=== PATIENT | female | born 1965 | race Hispanic/Latino ===

== ENCOUNTER 2016-08-01 10:06 | Outpatient (CLI) | payer OTHER ==
[~2016-08-01] VITALS: Ht 144.8 cm; Wt 50.2 kg
[~2016-08-01 10:06] MED LIST: OMEP40CA36 PO
--- OUTSIDE RECORDS SUMMARY | 2016-08-01 10:10 | XMS REPORT | Continuity of Care Document ---
Author Author [facility] Organization [facility] Address Unknown Phone Unavailable Care Team Providers Care Dental Instrument Maker Name Role Phone VITA SMITH MD PCP Insurance Providers Payer Name Policy Number Subscriber Name Relationship [employer] García Alcaraz [id number] Sister Molly Sanabria Na 18 Self / Same As Patient Advance Directives Directive Response Recorded Date/Time Advance Directives No 05/09/16 12:19pm Health Care Power of Rotary Surface Grinder No 05/09/16 12:19pm Resuscitation Status Full Code 05/09/16 12:19pm Problems No problem information available. Medications Current Home Medications Medication Dose Units Route Directions Days/Qty Instructions Start Date Omeprazole 40 Mg 40 Mg Oral Daily 05/09/16 Social History Social History Problem Response Recorded Date/Time Alcohol Use Occasionally Uses 05/09/2016 12:19pm Recreational Drug Use No 05/09/2016 12:19pm Recent Foreign Travel No 05/09/2016 12:18pm Recent Infectious Disease Exposure No 05/09/2016 12:18pm Sexually Transmitted Disease No 05/09/2016 12:19pm HIV/AIDS No 05/09/2016 12:19pm Smoking Status Never a Smoker 05/09/2016 12:19pm Recent Hopitalizations No 05/09/2016 12:19pm Sexually Transmitted Disease No 05/09/2016 12:19pm Query Response Start Date Stop Date Smoking Status Never a Smoker Hospital Discharge Instructions No hospital discharge instructions. Plan of Care Discharge Date 05/09/16 12:28pm Prescriptions See Medication Section Functional Status No functional status results. Allergies, Adverse Reactions, Alerts No known allergies. Immunizations No immunization records. Vital Signs Acute Vital Signs Vital Response Date/Time Height (Feet) 4 feet 05/09/2016 12:12pm Height (Inches) 11.00 inches 05/09/2016 12:12pm Height (Calculated Centimeters) 149.069683 cm 05/09/2016 12:12pm Weight (Pounds) 115 pounds 05/09/2016 12:12pm Weight (Ounces) 0.0 oz 05/09/2016 12:12pm Weight (Calculated Grams) 54578.12 gm 05/09/2016 12:12pm Weight (Calculated Kilograms) 52.167191 kilograms 05/09/2016 12:12pm Calculated BMI 23.2 05/09/2016 12:12pm Results No known relevant diagnostic tests, laboratory data and/or discharge summary. Procedures No known history of procedures. Encounters Encounter Location Arrival/Admit Date Discharge/Depart Date Attending Provider Departed Clinic [facility] 05/09/16 5:42am 05/09/16 12: 28pm WOLFGANG CARLOS DO
[2016-08-01 10:19] VITALS: BP 123/75
[2016-08-01 10:56] LABS: BASOPHILS # (AUTO) 0.1 10^3/uL (0.0-0.1); BASOPHILS % (AUTO) 1 % (0-10); EOSINOPHILS # (AUTO) 0.2 10^3/uL (0.0-0.3); EOSINOPHILS % (AUTO) 4 % (0-10); LYMPHOCYTES # (AUTO) 2.3 X 10^3 (1.0-4.0); LYMPHOCYTES % (AUTO) 42 % (12-44); MEAN CORPUSCULAR HEMOGLOBIN 32 PG (25-34); MEAN CORPUSCULAR HGB CONC 34 G/DL (32-36); MEAN CORPUSCULAR VOLUME 93 FL (80-99); MEAN PLATELET VOLUME 10.7 FL (7.4-10.4); MONOCYTES # (AUTO) 0.4 X 10^3 (0.0-1.0); MONOCYTES % (AUTO) 7 % (0-12); NEUTROPHILS # (AUTO) 2.5 X 10^3 (1.8-7.8); NEUTROPHILS % (AUTO) 46 % (42-75); PLATELET COUNT 300 10^3/uL (130-400); RED BLOOD COUNT 4.11 10^6/uL (4.35-5.85); RED CELL DISTRIBUTION WIDTH 13.1 % (10.0-14.5); WHITE BLOOD COUNT 5.4 10^3/uL (4.3-11.0)
[2016-08-04] MEDS ORDERED: HYDR-3812 PO (13:34)
[2016-08-04] MEDS ORDERED: DOCU-143 PO (13:34)
== END 2016-08-01 10:35 | disposition home or self-care (01) ==
LOC: PREOP 10:06
PROVIDERS: ATTEND Surgery
DX: Z01.812 Encounter for preprocedural laboratory examination (principal); Z11.2 Encounter for screening for other bacterial diseases; K82.8 Other specified diseases of gallbladder
CPT/HCPCS: 36415; 85025; 87081

== ENCOUNTER 2016-08-04 10:04 | Day surgery (SDC) | payer OTHER ==
[~2016-08-04] VITALS: Ht 144.8 cm; Wt 50.2 kg
--- OUTSIDE RECORDS SUMMARY | 2016-08-04 10:07 | XMS REPORT | Continuity of Care Document ---
Author Author [facility] Organization [facility] Address Unknown Phone Unavailable Care Team Providers Care Tape Edge Machine Operator Name Role Phone VITA SMITH MD PCP Insurance Providers Payer Name Policy Number Subscriber Name Relationship [employer] García Alcaraz [id number] Sister Molly Sanabria Na 18 Self / Same As Patient Advance Directives Directive Response Recorded Date/Time Advance Directives No 05/09/16 12:19pm Health Care Power of Tele Marketing Executive No 05/09/16 12:19pm Resuscitation Status Full Code [...] 11.00 inches 05/09/2016 12:12pm Height (Calculated Centimeters) 149.632083 cm 05/09/2016 12:12pm Weight (Pounds) 115 pounds 05/09/2016 12:12pm Weight (Ounces) 0.0 oz 05/09/2016 12:12pm Weight (Calculated Grams) 03937.12 gm 05/09/2016 12:12pm Weight (Calculated Kilograms) 52.705781 kilograms 05/09/2016 12:12pm Calculated BMI 23.2 05/09/2016 12:12pm Results No known relevant diagnostic tests, laboratory data and/or discharge summary. Procedures No known history of procedures. Encounters Encounter Location Arrival/Admit Date Discharge/Depart Date Attending Provider Departed Clinic [facility] 05/09/16 5:42am 05/09/16 12: 28pm WOLFGANG CARLOS DO
--- OUTSIDE RECORDS SUMMARY | 2016-08-04 10:08 | XMS REPORT | Continuity of Care Document ---
Author Author [facility] Organization [facility] Address Unknown Phone Unavailable Care Team Providers Care Refinish Technician Name Role Phone VITA SMITH MD PCP Insurance Providers Payer Name Policy Number Subscriber Name Relationship [employer] García Alcaraz [id number] Sister Molly Sanabria Na 18 Self / Same As Patient Advance Directives Directive Response Recorded Date/Time Advance Directives No 05/09/16 12:19pm Health Care Power of Blood Bank Order Control Clerk No 05/09/16 12:19pm Resuscitation Status Full Code [...] 11.00 inches 05/09/2016 12:12pm Height (Calculated Centimeters) 149.419018 cm 05/09/2016 12:12pm Weight (Pounds) 115 pounds 05/09/2016 12:12pm Weight (Ounces) 0.0 oz 05/09/2016 12:12pm Weight (Calculated Grams) 29543.12 gm 05/09/2016 12:12pm Weight (Calculated Kilograms) 52.782292 kilograms 05/09/2016 12:12pm Calculated BMI 23.2 05/09/2016 12:12pm Results No known relevant diagnostic tests, laboratory data and/or discharge summary. Procedures No known history of procedures. Encounters Encounter Location Arrival/Admit Date Discharge/Depart Date Attending Provider Departed Clinic [facility] 05/09/16 5:42am 05/09/16 12: 28pm WOLFGANG CARLOS DO
[2016-08-04 10:29] VITALS: BP 134/83
[2016-08-04] MEDS ORDERED: ceFAZolin 1 GM/NS 50 ML IVPB IV ONE ×2 (10:30)
[2016-08-04] MEDS ORDERED: FAMOTIDINE 20MG/2ML IV (PEPCID) IV ONE (12:00)
[2016-08-04] MEDS: LACTATED RINGERS 1,000 ML IV PRN ×2 (12:00→13:21)
[2016-08-04] MEDS ORDERED: ceFAZolin 1,000 MG (ANCEF) VIAL ONE (12:21)
[2016-08-04] MEDS ORDERED: NORMAL SALINE (BAXTER MINI) 50 ML IV ONE (12:21)
[2016-08-04] MEDS ORDERED: SEVOFLURANE (ULTANE) 15 ML INHAL SOLN ONE ×2 (12:23→13:23)
[2016-08-04] MEDS ORDERED: ONDANSETRON 4 MG/2 ML (SDV) Z0FRAN ONE (12:23)
[2016-08-04] MEDS ORDERED: ROCURONIUM 50 MG/5 ML (ZEMURON) VIAL IV ONE (12:23)
[2016-08-04] MEDS ORDERED: fentaNYL INJECTION 100 MCG/2 ML AMP ONE (12:23)
[2016-08-04] MEDS ORDERED: proPOfol 200 MG/20 ML (DIPRIVAN) VIAL IV ONE (12:23)
[2016-08-04] MEDS ORDERED: LACTATED RINGERS 1,000 ML IV ONE ×2 (12:23→13:19)
[2016-08-04] MEDS ORDERED: LIDOCAINE PF 2% 10 ML (XYLOCAINE) AMP ONE (12:23)
[2016-08-04] MEDS ORDERED: MIDAZOLAM 2 MG/2 ML (VERSED) VIAL ONE (12:24)
[2016-08-04] MEDS ORDERED: BUPIVACAINE 0.5% 30 ML (SENSORCAINE) VIAL ONE (12:41)
[2016-08-04] MEDS ORDERED: LIDOCAINE 1% INJ 20 ML (XYLOCAINE) VIAL ONE (12:41)
[2016-08-04] MEDS ORDERED: NEOSTIGMINE (BLOXIVERZ ) 1 MG/1ML 10 ML VIAL ONE (13:19)
[2016-08-04] MEDS ORDERED: GLYCOPYRROLATE 0.2 MG/ML (ROBINUL) 2 ML VIAL ONE (13:19)
--- NOTE | 2016-08-04 13:33 | Progress Note-Post Operative ---
Post-Operative Progess Note Laryngologist Dr. Guevara Pre-Operative Diagnosis biliary dyskinesia Post-Operative Diagnosis same Post-Op Procedure Note Date of Procedure: Aug 04, 2016 Name of Procedure: lap scout c ioc Procedure Note/Findings see note Anesthesia Type general Estimated blood loss (mL): minimal Specimen(s) collected gallbladder WOLFGANG CARLOS DO Aug 04, 2016 13:33
[2016-08-04] MEDS ORDERED: DOCU-143 PO (13:34)
[2016-08-04] MEDS ORDERED: HYDR-3812 PO (13:34)
--- NOTE | 2016-08-04 13:35 | Discharge Inst-Simple/Standard ---
Discharge Inst-Standard Discharge Medications New, Converted or Re-Newed RX: RX on Chart Patient Instructions/Follow Up Plan of Care/Instructions/FU: 2 weeks Jace Activity as Tolerated: No Discharge Diet: Regular Diet Other Inst to Patient Follow up Appt: Make appointment for 2 weeks. Instructions: No lifting greater than 10 pounds. No strenuous activity. May shower in 24 hours, no tub bath or soaking. Use incentive spirometer at home as directed. No Smoking Skin/Wound Care: May remove bandages in 24 hours. You need to leave the white strips over incision on they will fall off on their own. Symptoms to Report: Appetite Changes, Extremity Discoloration, Numbness/Tingling, Swelling Increased , Bleeding Excessive, Eyesight Changes, Pain Increased, Urine Color Change, Constipation(Persistent), Fever over 101 degree F, Pain/Pressure in chest, Urinating Difficulty, Cough Up/Vomit Blood, Heart Beat Irreg/Pounding, Pain/ Pressure in jaw, Vaginal Bleeding Increase, Cramps in feet or legs, Lightheadedness, Pain/Pressure in shoulder, Diarrhea(Persistent), Memory Changes Suddenly, Questions/Concerns, Weight gain consecutive days, Dizziness/ Fainting, Nausea/Vomiting, Shortness of Breath, Weight gain over 2 pounds. If eyes or skin turn yellow notify physician. If questions or concerns contact your physician Or seek help at emergency department. WOLFGANG CARLOS DO Aug 04, 2016 13:35
[2016-08-04] MEDS ORDERED: HYDROcodone/APAP 5 MG/325 MG (LORTAB) TAB PO PRN (13:45)
[2016-08-04] MEDS ORDERED: BUPIVACAINE 0.5% 30 ML (SENSORCAINE) VIAL INJ ONE (13:45)
[2016-08-04] MEDS ORDERED: LIDOCAINE 1% INJ 20 ML (XYLOCAINE) VIAL INJ ONE (13:45)
[2016-08-04] MEDS ORDERED: MEPERIDINE (DEMEROL) INJ 50 MG/ML IVP PRN (14:00)
[2016-08-04] MEDS ORDERED: ONDANSETRON 4 MG/2 ML (SDV) Z0FRAN IVP PRN (14:00)
[2016-08-04] MEDS: morphine INJ 10 MG/ML 1ML (SYR OR VIAL) IVP PRN ×2 (14:09→14:25)
[2016-08-04 14:45] VITALS: BP 125/63
[2016-08-04 15:15] VITALS: BP 119/62
--- NOTE | 2016-08-04 15:20 | Diagnostic Imaging Report ---
Fluoroscopy. INDICATION: Laparoscopic cholecystectomy. Fluoroscopic assistance was provided for Dr. Marsh and Dr. Mccormick during their laparoscopic cholecystectomy procedure. 24 seconds of fluoroscopy time was visualized. FINDINGS: Multiple images of the right upper quadrant were obtained. There are laparoscopic devices in place. The common bile duct has been opacified via a cystic duct catheter. The common bile duct does seem slightly dilated but there is no defect within the duct to suggest retained calculus. Contrast is seen extending from the common bile duct into the small bowel. IMPRESSION: There is no evidence for retained calculus within the common bile duct. Dictated by: Dictated on workstation # [id number]
[2016-08-04 15:45] VITALS: BP 107/61
[2016-08-04] MEDS ORDERED: ONDANSETRON 4 MG/2 ML (SDV) Z0FRAN IVP ONE (16:15)
[2016-08-04 17:50] VITALS: BP 107/61
--- NOTE | 2016-08-05 09:46 | OPERATIVE REPORT ---
PROCEDURE PHYSICIAN: WOLFGANG CARLOS DATE OF PROCEDURE: 08/04/2016 PREOPERATIVE DIAGNOSIS: Biliary dyskinesia. POSTOPERATIVE DIAGNOSIS: Biliary dyskinesia. PROCEDURE: Laparoscopic cholecystectomy with intraoperative cholangiogram. SURGEON: Jace. PANTOGRAPH SETTER: Dr. Guevara, assist in retraction, dissection, and closure. ANESTHESIA: General. ESTIMATED BLOOD LOSS: Minimal. COMPLICATIONS: None. INDICATIONS: The patient is a 50-year-old female who has been having right upper quadrant abdominal pain. She had work-up which demonstrated a gallbladder ejection fraction of approximately 13%, consistent with biliary dyskinesia. She understands the risks and benefits of the procedure and wishes to proceed with the procedure. Consent signed on the chart. PROCEDURE: The patient was taken to the operating suite. She was prepped and draped in a sterile fashion. A surgical pause was performed. Local anesthetic was infiltrated to the umbilicus. A number 15 blade scalpel was used to make an incision. Cautery dissection was used to dissect down to the fascia, which was then scored, grasped and elevated and was entered. An 0 Vicryl suture was placed in the [id number]-[id number] fashion and a Weber trocar was then placed. Pneumoperitoneum was achieved. Under direct visualization of the laparoscope, a 5 mm trocar was placed in the subxiphoid region and two 5-mm trocars were placed in the right upper quadrant. Local anesthetic was infiltrated before. A total of 20 mL of 0.5% Marcaine 1% lidocaine 50:50 ratio was used to anesthetize the trocar sites. The gallbladder was then grasped, elevated. The cystic duct was dissected out along with the cystic artery which had slight small branch off of it. Clips were placed on the cystic arteries and the branch. These were then transected. The cystic duct had a clip placed on the distal portion which then the duct was partially transected. An arrow catheter was inserted and cholangiogram was performed. There were no filling defects. Contrast made its way into the duodenum without difficulty. The catheter was removed. Clips were placed on proximal portion. This was then completely transected. Hook cautery was used to dissect the gallbladder from the gallbladder fossa and achieving hemostasis. Once removed, it was placed in an Endobag and removed through the 12 mm trocar site. Copious amounts of irrigation was used to irrigate the abdomen. The liver bed was reinspected until hemostasis had been achieved. A 12 mm fascial defect was closed using 0 Vicryl in a [id number]-[id number] fashion was already placed. The abdomen was then desufflated. Trocars were removed. The skin was then closed with 4-0 Vicryl in a subcuticular fashion. The area was then washed and dried and Mastisol and Steri-Strips were applied. Sterile bandages were applied. The patient tolerated the procedure well without any complications. She was taken to the recovery room in stable condition. Job ID: [id number] Dictated Date: 08/04/2016 13:43:45 Business Analytics Manager Date: 08/05/2016 09:35:31 / vanessa
== END 2016-08-04 17:50 | disposition home or self-care (01) ==
LOC: SDC 10:04
PROVIDERS: ATTEND Surgery
DX: K81.1 Chronic cholecystitis (principal)
CPT/HCPCS: 84703; 94664